=== PATIENT | female | born 1975 | race Caucasian/White ===

== ENCOUNTER 2018-04-03 17:03 | Emergency (ER) | payer BC, SELFPAY ==
[2018-04-03] MEDS ORDERED: Promethazine HCl 25 MG/ML VIAL ONE ×2 (17:20→18:11)
[2018-04-03] MEDS ORDERED: diphenhydrAMINE 50 MG/ML VIAL ONE ×2 (17:20→18:11)
[2018-04-03] MEDS ORDERED: Ketorolac Tromethamine 30 MG/ML VIAL ONE (17:20)
[2018-04-03] MEDS ORDERED: Sodium Chloride 0.9% 1,000 ML ONE ×2 (17:20→18:08)
--- NOTE | 2018-04-03 18:37 | CT ---
CT OF BRAIN PERFORMED WITHOUT CONTRAST ENHANCEMENT: 04/03/18 HISTORY: Left sided headache. The ventricular and cisternal system is within normal limits. There is no signs of intracerebral hemo rrhage or extra-axial fluid collections. Mastoid air cells and visualized sinuses appear clear. IMPRESSION: No acute intracranial abnormalities. POS: [facility]
== END 2018-04-03 19:12 | disposition home or self-care (01) ==
LOC: NAV ERS 17:03
DX: R51 Headache (principal); J45.909 Unspecified asthma, uncomplicated; Z87.891 Personal history of nicotine dependence
CPT/HCPCS: 70450; 96361; 96365; 96375; J1200; J1885; J2550; J7050